=== PATIENT | female | born 2000 | race Native Hawaiian/Other Pacific Islander ===

== ENCOUNTER 2021-07-03 07:17 | Emergency (ER) | payer BC ==
[~2021-07-03] VITALS: Ht 167.6 cm; Wt 65.5 kg
[2021-07-03] MEDS ORDERED: CELEXA 20MG20 MG/TA1 PO (07:32)
[2021-07-03] MEDS ORDERED: ONE-A-DAY PREN1 EAC1 PO (07:33)
[2021-07-03 08:26] LABS: BASO # 0.02 K/mm3 (0.02-0.10); EOS # 0.01 K/mm3 (0.04-0.40); EOS % 0.1 % (0.1-4.0); HEMATOCRIT 39.4 % (35.0-45.0); HEMOGLOBIN 13.1 g/dL (12.0-15.0); LYMPH# 1.43 K/mm3 (1.20-3.40); MEAN CELL VOLUME 89 fl (78-95); MEAN CORPUSCULAR HEMOGLOBIN 30 pg (26-32); MEAN CORPUSCULAR HGB CONC 33 g/dL (33-37); MEAN PLATELET VOLUME 8.7 fl (7.4-10.4); MONO # 0.86 K/mm3 (0.10-0.60); NEU # 6.82 K/mm3 (1.40-6.50); PLATELET COUNT 353 K/mm3 (130-400); RED BLOOD COUNT 4.41 M/mm3 (4.10-5.30); RED CELL DISTRIBUTION WIDTH 12.7 % (11.5-14.5); WHITE BLOOD COUNT 9.2 K/mm3 (4.8-10.8)
[2021-07-03 08:29] LABS: ALBUMIN 4.4 g/dL (3.5-5.0); POTASSIUM 3.9 mmol/L (3.5-5.1)
[2021-07-03 08:30] LABS: CALCIUM 9.9 mg/dL (8.3-10.5)
[2021-07-03 08:32] LABS: TOTAL PROTEIN 8.1 g/dL (6.4-8.3)
[2021-07-03 08:33] LABS: TOTAL BILIRUBIN 0.7 mg/dL (0.2-1.2)
[2021-07-03] MEDS ORDERED: BONJESTA ER 201 EACH PO (08:50)
[2021-07-03 09:04] LABS: URINE APPEARANCE CLOUDY; URINE BILIRUBIN NEGATIVE (NEGATIVE); URINE COLOR DK YELLOW; URINE GLUCOSE NEGATIVE (NEGATIVE); URINE KETONE 3+ (NEGATIVE); URINE NITRATE NEGATIVE (NEGATIVE); URINE PROTEIN(semi-quant) TRACE mg/dL (NEGATIVE); URINE UROBILINOGEN NORMAL (NORMAL)
[2021-07-03 09:05] LABS: URINE BLOOD TRACE (NEGATIVE); URINE LEUKOCYTE ESTERASE 1+ (NEGATIVE); URINE MUCUS PRESENT (NOT PRESENT)
[2021-07-03] MEDS ORDERED: MACROBID 100 M100 MG PO (09:15)
[2021-07-03 09:44] VITALS: BP 113/58
== END 2021-07-03 09:45 | disposition home or self-care (01) ==
LOC: ED 07:17
PROVIDERS: Nurse Practitioner
DX: O21.9 Vomiting of pregnancy, unspecified (principal); O23.42 Unspecified infection of urinary tract in pregnancy, second trimester; N39.0 Urinary tract infection, site not specified; Z3A.22 22 weeks gestation of pregnancy
CPT/HCPCS: J2405; J2765; J7030

== ENCOUNTER 2021-07-18 08:03 | Emergency (ER) | payer BC ==
[~2021-07-18 08:03] MED LIST: BONJESTA ER 201 EACH PO; CELEXA 20MG20 MG/TA1 PO; MACROBID 100 M100 MG PO; ONE-A-DAY PREN1 EAC1 PO
[2021-07-18 08:43] LABS: BASO # 0.02 K/mm3 (0.02-0.10); HEMATOCRIT 39.8 % (35.0-45.0); HEMOGLOBIN 13.5 g/dL (12.0-15.0); LYMPH# 1.17 K/mm3 (1.20-3.40); MEAN CELL VOLUME 91 fl (78-95); MEAN CORPUSCULAR HEMOGLOBIN 31 pg (26-32); MEAN CORPUSCULAR HGB CONC 34 g/dL (33-37); MONO # 0.64 K/mm3 (0.10-0.60); NEU # 9.23 K/mm3 (1.40-6.50); PLATELET COUNT 328 K/mm3 (130-400); RED CELL DISTRIBUTION WIDTH 12.5 % (11.5-14.5); WHITE BLOOD COUNT 11.1 K/mm3 (4.8-10.8)
[2021-07-18 08:59] LABS: ALBUMIN 4.5 g/dL (3.5-5.0); POTASSIUM 3.9 mmol/L (3.5-5.1)
[2021-07-18 09:00] LABS: CALCIUM 9.6 mg/dL (8.3-10.5)
[2021-07-18 09:05] LABS: URINE APPEARANCE CLEAR; URINE BILIRUBIN NEGATIVE (NEGATIVE); URINE BLOOD NEGATIVE (NEGATIVE); URINE COLOR YELLOW; URINE GLUCOSE NEGATIVE (NEGATIVE); URINE KETONE 3+ (NEGATIVE); URINE LEUKOCYTE ESTERASE NEGATIVE (NEGATIVE); URINE NITRATE NEGATIVE (NEGATIVE); URINE PROTEIN(semi-quant) 1+ mg/dL (NEGATIVE); URINE UROBILINOGEN NORMAL (NORMAL)
[2021-07-18 09:06] LABS: URINE MUCUS PRESENT (NOT PRESENT)
[2021-07-18 09:30] LABS: TOTAL PROTEIN 8.2 g/dL (6.4-8.3)
[2021-07-18 09:31] LABS: TOTAL BILIRUBIN 0.6 mg/dL (0.2-1.2)
[2021-07-18 11:01] VITALS: BP 118/89
== END 2021-07-18 10:45 | disposition home or self-care (01) ==
LOC: ED 08:03
PROVIDERS: Nurse Practitioner
DX: O23.41 Unspecified infection of urinary tract in pregnancy, first trimester (principal); N39.0 Urinary tract infection, site not specified; Z3A.08 8 weeks gestation of pregnancy
CPT/HCPCS: J2550; J7030